=== PATIENT | female | born 1955 | race Caucasian/White ===

== ENCOUNTER 2018-08-31 06:01 | Day surgery (SDC) | payer OTHER ==
[2018-08-31] MEDS ORDERED: WATER FOR IRRIG STERILE ONE (07:30)
[2018-08-31] MEDS ORDERED: WATER FOR IRRIG STERILE IR ONE (07:30)
[2018-08-31] MEDS ORDERED: NACL 0.9% 1000 ML 1,000 ML ONE (07:36)
--- NOTE | 2018-08-31 07:42 | Anesthesia Day of Surgery ---
Anesthesia Day of Surgery - Day of Surgery Patient Examined: Yes Patient H&P Reviewed: Yes Patient is NPO: Yes
--- NOTE | 2018-08-31 07:44 | Anesthesia Consultation ---
Anesthesia Consult and Med Hx Date of service: 08/31/18 - Airway Anesthetic Teeth Evaluation: Poor ROM Head & Neck: Adequate Mental/Hyoid Distance: Adequate Mallampati Class: Class III Intubation Access Assessment: Possibly Difficult - Pre-Operative Health Status ASA Pre-Surgery Classification: ASA3 Proposed Anesthetic Plan: MAC - Cardiovascular System Hx Hypertension: Yes Hx Coronary Artery Disease: Yes (high cholesterol, mitral regurg,hx pvc's) - Endocrine Hx Non-Insulin Dependent Diabetes: Yes (pre diabetic) - Other Systems Hx Obesity: Yes
[2018-08-31] MEDS ORDERED: XYLOCAINE 1% 20 mL ONE (07:47)
[2018-08-31] MEDS ORDERED: VERSED ONE (07:48)
[2018-08-31] MEDS ORDERED: DIPRIVAN 10 MG/ML IV ONE ×2 (07:48)
[2018-08-31] MEDS ORDERED: NACL 0.9% 1000 ML 1,000 ML IV SCH (08:00)
--- NOTE | 2018-08-31 08:30 | Short Stay Summary ---
Short Stay Documentation - Allergies and Medications Current Medications: Allergies No Known Allergies Allergy (Verified 08/30/18 12:27) Home Medications Medication Instructions Recorded Confirmed Last Taken Type Adult Low Dose Aspirin EC 81 mg PO DAILY 08/30/18 08/31/18 08/30/18 History Chlorthalidone 25 mg PO DAILY 08/30/18 08/30/18 08/30/18 History Ciprofloxacin HCl 500 mg PO BID 08/30/18 08/30/18 Unknown History Enalapril Maleate 10 mg PO DAILY 08/30/18 08/30/18 08/30/18 History Magic Mouthwash 5 ml PO DAILY 08/30/18 08/30/18 Unknown History Meloxicam 15 mg PO DAILY 08/30/18 08/30/18 08/30/18 History Prednisone 5 mg PO DAILY 08/30/18 08/30/18 08/30/18 History Simvastatin 20 mg PO DAILY 08/30/18 08/31/18 08/30/18 History Losartan 100 mg PO DAILY 08/31/18 08/31/18 08/31/18 History Active Medications Sodium Chloride (Nacl 0.9% 1000 Ml) 1,000 mls @ 50 mls/hr IV DIRECT DAVON Last Admin: 08/31/18 07:41 Dose: 50 mls/hr Documented by: - Brief post op/procedure progress note Date of procedure: 08/31/18 Pre-op diagnosis: Colon cancer screening Post-op diagnosis: same (1. Colon polyps 2. Internal hemorrhoids) Procedure: Colonoscopy with snare polypectomy and with cold biopsy polypectomy Anesthesia: MAC Findings: as above Surgeon: TRINO THOMASON Estimated blood loss: none Pathology: list (1. Transverse colon polyps 2. Sigmoid colon polyp) Specimen disposition: to lab Condition: stable - Disposition Condition at discharge: Stable Disposition: [id number] TO HOME OR SELFCARE Short Stay Discharge Plan Additional Instructions: Post Sedation D/C Instructions When you return home you may resume your regular diet unless otherwise directed. -Go directly home from the hospital and rest quietly. You may resume normal activities tomorrow. -Do NOT drive, return to work, operate any machinery or make any important personal or business decisions today. -Do NOT drink any alcohol or take nerve or sleeping drugs. They add to the effects of the medicine still present in your body. Follow up with: TRACEY CONN MD [Primary Care Provider] - 7 Days
[2018-08-31 08:44] VITALS: BP 127/72
== END 2018-08-31 06:02 | disposition home or self-care (01) ==
LOC: GIO 06:01
PROVIDERS: ATTEND Internal Medicine Gastroenterology
DX: Z12.11 Encounter for screening for malignant neoplasm of colon (principal); D12.5 Benign neoplasm of sigmoid colon; K51.40 Inflammatory polyps of colon without complications; K64.8 Other hemorrhoids; I10 Essential (primary) hypertension; I25.10 Atherosclerotic heart disease of native coronary artery without angina pectoris; E78.00 Pure hypercholesterolemia, unspecified; E66.9 Obesity, unspecified; Z68.36 Body mass index [BMI] 36.0-36.9, adult; Z90.710 Acquired absence of both cervix and uterus; Z90.721 Acquired absence of ovaries, unilateral; Z98.890 Other specified postprocedural states; Z79.899 Other long term (current) drug therapy
CPT/HCPCS: 45380; 45385; 88305; J2250; J2704; J7030